=== PATIENT | male | born 1985 ===

== ENCOUNTER → 2022-02-03 | Outpatient (CLI) | payer SELFPAY ==
[2022-02-03 11:05] LABS: Alanine Aminotransfer (ALT/SGP 172 U/L (12-78); Albumin, Blood 3.9 g/dL (3.4-5.0); Albumin/Globulin Ratio 1.1 (0.8-1.8); Alk Phos 103 U/L (50-136); Anion Gap 4 mmol/L (6-16); Aspartate Aminotrans (AST/SGOT 62 U/L (12-37); Bilirubin, Total 0.9 mg/dL (0.1-1.0); Blood Urea Nitrogen 18 mg/dL (8-24); Bun/Creatinine Ratio 21.3 (12.0-20.0); CHOL/HDL RATIO 4.6; CO2, Blood 28 mmol/L (21-32); Calcium, Blood 8.9 mg/dL (8.5-10.1); Chloride, Blood 108 mmol/L (98-108); Cholesterol 189 mg/dL (50-200); Creatinine, Blood 0.85 mg/dL (0.60-1.20); Globulin, Blood 3.4 g/dL (2.2-4.0); Glomerular Filtration Rate 114 (60-); Glucose, Blood 87 mg/dL (70-99); HDL Cholesterol 41 mg/dL (>39); Low Density Lipoprotein Chol 122 mg/dL (0-110); Sodium, Blood 140 mmol/L (136-145); Total Protein, Blood 7.3 g/dL (6.4-8.2); Triglycerides 132 mg/dL (30-140); Very Low Density Lipoprot Chol 26 mg/dL (6-28)
== END | disposition home or self-care (01) ==
LOC: LAB SHORT 08:55
PROVIDERS: Family Medicine
DX: E78.5 Hyperlipidemia, unspecified (principal); R74.8 Abnormal levels of other serum enzymes
CPT/HCPCS: 36415; 80053; 80061